=== PATIENT | male | born 1985 | race Caucasian/White ===

== ENCOUNTER 2021-04-04 15:45 | Emergency (ER) | payer OTHER ==
--- NOTE | 2021-04-04 16:37 | RAD REPORT ---
EXAM DESCRIPTION: CT - CTHCSPWOC - 04/04/2021 4:24 pm CLINICAL HISTORY: Trauma, head and neck injury. seizure;Pain COMPARISON: No comparisons TECHNIQUE: Axial 5 mm thick images of the head were obtained. Axial 2 mm thick images of the cervical spine were obtained with sagittal and coronal reconstruction images generated and reviewed. All CT scans are performed using dose optimization technique as appropriate and may include automated exposure control or mA/KV adjustment according to patient size. FINDINGS: CT HEAD WITHOUT CONTRAST: No acute hemorrhage, hydrocephalus or extra-axial collection is identified.No areas of brain edema or midline shift. The paranasal sinuses and mastoids are clear.The calvarium is intact. CT CERVICAL SPINE WITHOUT CONTRAST: No fracture or subluxation.No prevertebral soft tissues swelling is identified. Disc height loss C5-6 with myocardial joint hypertrophy. IMPRESSION: No acute intracranial or cervical spine findings.
[2021-04-04 17:09] LABS: Absolute Lymphocytes (CBC) 1.9 K/uL (0.7-4.9); Basophils % 0.3 % (0-1.3); Hematocrit 48.4 % (39.6-49.0); Lymphocytes % 10.2 % (15.3-44.8); MPV 8.6 fL (7.6-11.3)
[2021-04-04] MEDS ORDERED: LORazepam 2 MG/ML VIAL ONE (17:09)
[2021-04-04 17:11] LABS: Urine Blood 2+ (Negative); Urine Glucose Negative (Negative); Urine Protein 2+ (Negative); Urine Specific Gravity >=1.030 (1.005-1.030)
[2021-04-04] MEDS ORDERED: NA CHLORIDE 0.9% 1,000 ML ONE ×2 (17:14→19:59)
[2021-04-04 17:18] LABS: Protime INR 0.97
[2021-04-04 17:29] LABS: ALT/SGPT 21 U/L (12-78); AST/SGOT 19 U/L (15-37); Albumin 4.8 g/dL (3.4-5.0); Alkaline Phosphatase 59 U/L (45-117); BUN Blood Urea Nitrogen 14 mg/dL (7-18); Bicarbonate 19 mmol/L (21-32); Bilirubin Direct 0.1 mg/dL (0-0.2); Bilirubin Total 0.4 mg/dL (0.2-1.0); Glucose Level 103 mg/dL (74-106); Potassium 3.6 mmol/L (3.5-5.1); Protein, Total 8.9 g/dL (6.4-8.2); Sodium Level 141 mmol/L (136-145)
[2021-04-04 17:29] LABS: Barbiturates NEGATIVE (NEGATIVE); Benzodiazepines NEGATIVE (NEGATIVE); Cocaine NEGATIVE (NEGATIVE); METHAMPHETAM NEGATIVE (NEGATIVE); Methadone NEGATIVE (NEGATIVE); Opiates NEGATIVE (NEGATIVE); Phencyclidine NEGATIVE (NEGATIVE); THC Cannibis POSITIVE (NEGATIVE)
[2021-04-04] MEDS ORDERED: NA CHLORIDE 0.9% 100 ML ONE (18:49)
[2021-04-04] MEDS ORDERED: FOSPHENYTOIN PE 100 MG/2 ML VIAL ONE (18:50)
[2021-04-04] MEDS ORDERED: FOSPHENYTOIN PE 500 MG/10 ML VIAL ONE (18:50)
--- NOTE | 2021-04-04 20:13 | ER ---
Nurse's Notes [facility] Name: Marcel Singh Age: 35 yrs Sex: Male : 1985 Arrival Date: 04/04/2021 Time: 15:59 Bed 16 Private MD: Diagnosis: Other seizures Presentation: 04/04 15:59 Chief complaint: EMS states: WITNESSED TONIC/CLONIC SZ AT FRIEND'S. Coronavirus screen: bp At this time, the client does not indicate any symptoms associated with coronavirus-19. Ebola Screen: No symptoms or risks identified at this time. Initial Sepsis Screen: Does the patient meet any 2 criteria? No. Patient's initial sepsis screen is negative. Does the patient have a suspected source of infection? No. Patient's initial sepsis screen is negative. Risk Assessment: Do you want to hurt yourself or someone else? Patient reports no desire to harm self or others. Onset of symptoms is unknown. Care prior to arrival: IV initiated. 18 GA, in the right antecubital area. 15:59 Method Of Arrival: EMS: [facility] bp 15:59 Acuity: JOSEPH 3 bp Triage Assessment: 16:02 General: Appears in no apparent distress. comfortable, Behavior is calm, cooperative, bp appropriate for age. Pain: Complains of pain in scalp. EENT: No signs and/or symptoms were reported regarding the EENT system. 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 Cardiovascular: No deficits noted. Respiratory: No deficits noted. GI: No signs and/or symptoms were reported involving the gastrointestinal system. : No signs and/or symptoms were reported regarding the genitourinary system. Derm: No deficits noted. Musculoskeletal: No deficits noted. Historical: - Allergies: 16:02 levetiracetam; bp - PMHx: 16:02 Hypertension; PTSD; Seizures; bp - Immunization history:: Adult Immunizations up to date. - Social history:: Smoking status: Patient denies any tobacco usage or history of. Screenin:05 Abuse screen: Denies threats or abuse. Denies injuries from another. Nutritional bp screening: No deficits noted. Tuberculosis screening: No symptoms or risk factors identified. Fall Risk None identified. Assessment: 16:05 General: SEE TRIAGE NOTE. bp 17:30 Reassessment: SZ ACTIVITY NOTED. LMP AT B/S. bp 18:30 Reassessment: No changes from previously documented assessment. Patient and/or family bp updated on plan of care and expected duration. Pain level reassessed. Patient is alert, oriented x 3, equal unlabored respirations, skin warm/dry/pink. FOSPHENYTOIN INFUSING. NRB IN PLACE. 19:30 Reassessment: No changes from previously documented assessment. Patient and/or family fu updated on plan of care and expected duration. Pain level reassessed. Patient is alert, oriented x 3, equal unlabored respirations, skin warm/dry/pink. Vital Signs: 15:59 Weight 83.91 kg; Height 5 ft. 8 in. (172.72 cm); bp 16:07 BP 122 / 87; Pulse 81; Resp 16; Temp 98; Pulse Ox 97% ; bp 17:00 BP 140 / 84; Pulse 92; Resp 16; Pulse Ox 100% ; bp 18:30 BP 105 / 54; Pulse 87; Resp 17; Pulse Ox 98% ; bp 15:59 Body Mass Index 28.13 (83.91 kg, 172.72 cm) bp [place] Coma Score: 16:02 Eye Response: spontaneous(4). Verbal Response: oriented(5). Motor Response: obeys bp commands(6). Total: 15. ED Course: 15:59 Patient arrived in ED. bp 15:59 [facility] cp 15:59 Michelet Wray MD is Attending Physician. cp 16:02 Triage completed. bp 16:02 Arm band placed on. bp 16:05 Patient has correct armband on for positive identification. Bed in low position. Call bp light in reach. Side rails up X2. Adult w/ patient. 16:05 Maintain EMS IV. Dressing intact. Good blood return noted. Site clean \T\ dry. Gauge \T\ bp site: 18 G R AC. 16:24 CT Head C Spine In Process Unspecified. EDMS 16:39 Ruiz Lance, RN is Primary Nurse. bp 17:04 Initial lab(s) drawn, by me, sent to lab. em1 17:29 initiated a transfer with [place] [facility] they are not eb accepting any transfers at this time due to the facility being at capacity. 20:00 No provider procedures requiring assistance completed. fu 20:11 IV discontinued, bleeding controlled, Pressure dressing applied. fu 20:12 Cresecncio Day MD is Referral Physician. cp Administered Medications: 16:45 Drug: Ativan (LORazepam) 2 mg Route: IVP; Site: right antecubital; iw 17:53 Follow up: Response: No adverse reaction bp 17:00 Drug: NS 0.9% 1000 ml Route: IV; Rate: 1 bolus; Site: right antecubital; bp 17:06 CANCELLED (Physician Discretion): Fosphenytoin 1 grams IVPB once; (mix in 50 to 100mL cp NS) 18:30 Drug: CEREbyx (fosphenytoin) 20 mg/kg Route: IVPB; Site: right antecubital; bp 19:42 Drug: NS 0.9% 1000 ml Route: IV; Rate: 1 bolus; Site: right antecubital; fu 20:10 Follow up: Response: No adverse reaction; IV Intake: 1000ml fu Intake: 20:10 IV: 1000ml; Total: 1000ml. fu Outcome: 20:13 Discharge ordered by MD. cp 20:13 Discharged to home via wheelchair, with family. fu 20:13 Condition: good 20:50 Discharge instructions given to patient, family, Instructed on discharge instructions, fu follow up and referral plans. Demonstrated understanding of instructions, follow-up care, Prescriptions given X 2. 20:52 Patient left the ED. iw Signatures: Dispatcher [employer] Farrah Waters RN RN iw Martinez, Eric em1 Michelet Guerrero PA PA cp Fernando Ramon RN RN fu Peltier, Brian, RN RN bp Botello, Elizabeth eb Corrections: (The following items were deleted from the chart) 16:03 16:02 Allergies: NKDA; bp bp
--- NOTE | 2021-04-04 20:13 | EDPHYS ---
Physician Documentation [facility] Name: Marcel Nortonzcolin Age: 35 yrs Sex: Male : 1985 Arrival Date: 04/04/2021 Time: 15:59 Bed 16 Private MD: ED Physician Michelet Wray HPI: 04/04 16:05 This 35 yrs old Male presents to ER via EMS with complaints of Seizure. cp 16:05 The patient presents after having a single isolated seizure, that lasted less than 1 cp minute, the episode(s) was witnessed, by a friend. 16:05 Character of seizure(s): Loss of consciousness: the patient experienced loss of cp consciousness, Motor activity: generalized, Incontinence: none. 16:05 Seizure onset: just prior to arrival. Seizure Hx: Cause: head injury, Last seizure: The cp patient's last seizure was approximately 5 year(s) ago, Seizure medications: none. Associated injury: Head/face: left side of the back of head, contusion. EMS care: none. Current symptoms: mild confusion. 16:45 Significant other reports patient has allergy to Topamax and Keppra. cp Historical: - Allergies: 16:02 levetiracetam; bp - PMHx: 16:02 Hypertension; PTSD; Seizures; bp - Immunization history:: Adult Immunizations up to date. - Social history:: Smoking status: Patient denies any tobacco usage or history of. ROS: 16:10 Constitutional: Negative for body aches, chills, fever, poor PO intake. cp 16:10 Cardiovascular: Negative for chest pain, palpitations. cp 16:10 Eyes: Negative for injury, pain, redness, and discharge. cp 16:10 ENT: Negative for ear pain, sore throat, difficulty swallowing, difficulty handling secretions. 16:10 Respiratory: Negative for cough, shortness of breath, wheezing. 16:10 Abdomen/GI: Negative for abdominal pain, nausea, vomiting, and diarrhea. 16:10 Back: Negative for pain at rest, pain with movement. 16:10 MS/extremity: Negative for injury or acute deformity, decreased range of motion, paresthesias. 16:10 Skin: Negative for rash. 16:10 Neuro: Positive for headache, history of seizure, Negative for altered mental status. 16:10 All other systems are negative. Exam: 16:15 Constitutional: The patient appears in no acute distress, alert, awake, cp non-diaphoretic, non-toxic, well developed, well nourished. 16:15 Head/face: Noted is contusion, that is superficial, of the left side of the back of cp head, swelling, that is mild, of the left side of the back of head, tenderness, that is mild, of the left side of the back of head, Sinus tenderness, is not appreciated. 16:15 Eyes: Periorbital structures: appear normal, Pupils: equal, round, and reactive to light and accomodation, Extraocular movements: intact throughout, Conjunctiva: normal, no exudate, no injection, Sclera: no appreciated abnormality, Lids and lashes: appear normal, bilaterally. 16:15 ENT: External ear(s): are unremarkable, Ear canal(s): are normal, clear, TM's: bulging, is not appreciated, bilaterally, dullness, bilaterally, erythema, is not appreciated, bilaterally, Nose: is normal, Mouth: Lips: moist, Oral mucosa: pink and intact, moist, Posterior pharynx: Airway: no evidence of obstruction, patent. 16:15 Neck: C-spine: vertebral tenderness, is not appreciated, crepitus, is not appreciated, ROM/movement: pain, that is mild, with flexion, limited range of motion, is not appreciated, Meningeal signs: are not present, nuchal rigidity, is not appreciated. 16:15 Chest/axilla: Inspection: normal, Palpation: is normal, no crepitus, no tenderness. 16:15 Cardiovascular: Rate: normal, Rhythm: regular, Edema: is not appreciated, JVD: is not appreciated. 16:15 Respiratory: the patient does not display signs of respiratory distress, Respirations: normal, no use of accessory muscles, no retractions, labored breathing, is not present, Breath sounds: are clear throughout, no decreased breath sounds, no stridor, no wheezing. 16:15 Abdomen/GI: Inspection: abdomen appears normal, Palpation: abdomen is soft and non-tender, in all quadrants, rebound tenderness, is not appreciated, involuntary guarding, is not appreciated. 16:15 Neuro: Orientation: to person, place \T\ time. Mentation: able to follow commands, slow to respond, Cerebellar function: is grossly normal, Motor: moves all fours, strength is normal, Sensation: is normal. Vital Signs: 15:59 Weight 83.91 kg; Height 5 ft. 8 in. (172.72 cm); bp 16:07 BP 122 / 87; Pulse 81; Resp 16; Temp 98; Pulse Ox 97% ; bp 17:00 BP 140 / 84; Pulse 92; Resp 16; Pulse Ox 100% ; bp 18:30 BP 105 / 54; Pulse 87; Resp 17; Pulse Ox 98% ; bp 15:59 Body Mass Index 28.13 (83.91 kg, 172.72 cm) bp [place] Coma Score: 16:02 Eye Response: spontaneous(4). Verbal Response: oriented(5). Motor Response: obeys bp commands(6). Total: 15. MDM: 16:12 Patient medically screened. sherrie 17:00 Differential diagnosis: cerebral vascular accident, drug overdose, cardiac arrhythmia, cp seizure, TIA. 18:30 Data reviewed: vital signs, nurses notes, lab test result(s), radiologic studies, CT cp scan. 18:30 Physician consultation: Crescencio Day MD was called at 18:30, was contacted at 18:30, regarding consult, patient's condition, wants patient to start Dilantin 300 mg qhs and f/u outpatient with neurology. 20:10 Counseling: I had a detailed discussion with the patient and/or guardian regarding: the cp historical points, exam findings, and any diagnostic results supporting the discharge/admit diagnosis, lab results, radiology results, the need for outpatient follow up, for definitive care, a neurologist, to return to the emergency department if symptoms worsen or persist or if there are any questions or concerns that arise at home. 20:10 Response to treatment: the patient's symptoms have markedly improved after treatment, cp VSS. Patient resting comfortably in exam room. Patient with observed seizure activity while being monitored in ED, now stable and no signs of respiratory distress. 04/04 16:01 Order name: Acetaminophen; Complete Time: 17:44 cp 04/04 17:44 Interpretation: ACETA < 2.0; Reviewed. 04/04 16:01 Order name: Basic Metabolic Panel; Complete Time: 17:44 cp 04/04 17:45 Interpretation: Normal except: CO2 19; CRE 1.48; GFR 54. cp 16:01 Order name: CBC with Diff; Complete Time: 17:44 cp 08 17:45 Interpretation: Normal except: WBC 18.50; MCV 96.9; AMADO% 79.2; LYM% 10.2; NEUT A 14.7; cp MNA 1.9. 08 16:01 Order name: ETOH Level; Complete Time: 17:44 cp 08 16:01 Order name: Hepatic Function; Complete Time: 17:44 cp 04/04 17:45 Interpretation: Normal except: TP 8.9; GLOB 4.1. cp 08/ 16:01 Order name: PT-INR; Complete Time: 17:44 cp 04/04 16:01 Order name: Ptt, Activated; Complete Time: 17:44 cp 04/04 16:01 Order name: Salicylate; Complete Time: 17:44 cp 08 16:01 Order name: Urine Drug Screen; Complete Time: 17:44 cp 08 18:13 Interpretation: Normal except: THC POSITIVE. cp 08/ 16:01 Order name: CT Head C Spine; Complete Time: 16:40 cp 08 17:10 Order name: Urine Dipstick-Ancillary; Complete Time: 17:44 EDMS 08 18:13 Interpretation: Normal except: UBLD 2+; UPROT 2+. cp 08/ 16:01 Order name: EKG; Complete Time: 16:02 cp 08 16:01 Order name: IV Saline Lock; Complete Time: 16:08 cp 08 16:01 Order name: Labs collected and sent; Complete Time: 17:04 cp 04/04 16:01 Order name: Suicide Screening ([place]); Complete Time: 16:08 cp 08 16:01 Order name: Urine Dipstick-Ancillary (obtain specimen); Complete Time: 17:21 cp Administered Medications: 16:45 Drug: Ativan (LORazepam) 2 mg Route: IVP; Site: right antecubital; iw 17:53 Follow up: Response: No adverse reaction bp 17:00 Drug: NS 0.9% 1000 ml Route: IV; Rate: 1 bolus; Site: right antecubital; bp 17:06 CANCELLED (Physician Discretion): Fosphenytoin 1 grams IVPB once; (mix in 50 to 100mL cp NS) 18:30 Drug: CEREbyx (fosphenytoin) 20 mg/kg Route: IVPB; Site: right antecubital; bp 19:42 Drug: NS 0.9% 1000 ml Route: IV; Rate: 1 bolus; Site: right antecubital; fu 20:10 Follow up: Response: No adverse reaction; IV Intake: 1000ml fu Disposition: 20:20 Chart complete. cp Disposition Summary: 04/04/21 20:13 Discharge Ordered Location: Home cp Problem: an acute exacerbation cp Symptoms: have improved cp Condition: Stable cp Diagnosis - Other seizures cp Followup: cp - With: Crescencio Day MD - When: 2 - 3 days - Reason: seizure disorder Discharge Instructions: - Epilepsy cp - Seizure, Adult cp - Discharge Summary Sheet fu Forms: - Medication Reconciliation Form cp - SBAR form fu - Thank You Letter cp - Antibiotic Education cp - Prescription Opioid Use cp Prescriptions: - Dilantin Extended 100 mg Oral capsule - take 3 capsule by ORAL route At bedtime; 90 capsule; Refills: 0, Product cp Selection Permitted - Diastat - insert 10 milligram by RECTAL route one time As needed; 10 milligram; Refills: cp 0, Product Selection Permitted Addendum: 04/06/2021 07:38 Co-signature as Attending Physician, Michelet Wray MD I agree with the assessment and c julian plan of care. Signatures: Dispatcher [employer] Michelet Shelton MD MD cha Williams, Irene, RN RN Michelet Sanders PA PA cp Fernando Ramon RN RN fu Peltier, Brian, RN RN bp Corrections: (The following items were deleted from the chart) 04/04 16:03 16:02 Allergies: NKDA; bp bp 16:24 16:05 The patient presents after having a single isolated seizure, that lasted less cp than 1 minute, cp 17:06 16:48 Fosphenytoin 1 grams IVPB once; (mix in 50 to 100mL NS) ordered. cp cp 04/05 17:04 04/04 20:15 Counseling: I had a detailed discussion with the patient and/or guardian cp regarding: the historical points, exam findings, and any diagnostic results supporting the discharge/admit diagnosis, lab results, radiology results, the need for outpatient follow up, for definitive care, a neurologist, to return to the emergency department if symptoms worsen or persist or if there are any questions or concerns that arise at home, cp
[2021-04-04 20:58] VITALS: TEMP 98
[2021-04-04 21:02] VITALS: BP 105/54; O2SAT 98
== END 2021-04-04 20:52 | disposition home or self-care (01) ==
LOC: ER 15:45
DX: G40.89 Other seizures (principal); I10 Essential (primary) hypertension; Z88.8 Allergy status to other drugs, medicaments and biological substances
CPT/HCPCS: 85025; 80048; 36415; 80320; 80329 ×2; 85610; 80076; 85730; 81003; 80307; 70450; 72125; 96375; 96374; 99284; Q2009 ×2; J7030 ×2

== ENCOUNTER 2022-08-08 20:43 | Emergency (ER) | payer OTHER ==
[2022-08-08] MEDS ORDERED: ASPIRIN EC 81 MG TAB PO ONE (21:22)
[2022-08-08 21:44] LABS: Absolute Lymphocytes (CBC) 2.5 K/uL (0.7-4.9); Hematocrit 38.5 % (39.6-49.0); Lymphocytes % 29.7 % (15.3-44.8); MCV 92.7 fL (80-100); MPV 8.1 fL (7.6-11.3); RBC Red Blood Cell Count 4.15 M/uL (4.33-5.43)
[2022-08-08 21:46] LABS: Protime INR 0.99
[2022-08-08 21:59] LABS: ALT/SGPT 17 U/L (16-61); AST/SGOT 20 U/L (15-37); Albumin 3.8 g/dL (3.4-5.0); Alkaline Phosphatase 50 U/L (45-117); BUN Blood Urea Nitrogen 15 mg/dL (7-18); Bicarbonate 28 mmol/L (21-32); Bilirubin Total 0.2 mg/dL (0.2-1.0); Glomerular Filtration Rate 81 ml/min (=/>90); Glucose Level 101 mg/dL (74-106); NT PRO-BNP 46 pg/mL (<125); Potassium 3.8 mmol/L (3.5-5.1); Protein, Total 7.2 g/dL (6.4-8.2); Sodium Level 139 mmol/L (136-145); Troponin High Sensitivity 5.5 pg/mL (<58.9)
[2022-08-08 22:06] LABS: Bilirubin Direct < 0.1 mg/dL (0-0.2)
--- NOTE | 2022-08-08 22:38 | RAD REPORT ---
EXAM DESCRIPTION: RAD - Chest Single View - 08/08/2022 10:28 pm CLINICAL HISTORY: CHEST PAIN COMPARISON: None FINDINGS: Lines: None. Lungs: No evidence of edema or pneumonia. Pleural: No significant pleural effusions or pneumothorax. Cardiac: The heart size is within normal limits. Mediastinum: Within normal limits. Bones: No acute fractures. Other: None IMPRESSION: No acute cardiopulmonary disease.
[2022-08-08] MEDS ORDERED: KETOROLAC 30 MG/ML INJ ONE (23:09)
[2022-08-08 23:46] LABS: Urine Blood Negative (Negative); Urine Glucose Negative (Negative); Urine Protein Negative (Negative); Urine pH 5.5 (5.0-7.0)
[2022-08-09 00:13] LABS: Urine Mucus Slight /HPF (None Seen)
[2022-08-09 00:15] LABS: Barbiturates NEGATIVE (NEGATIVE); Benzodiazepines NEGATIVE (NEGATIVE); Cocaine NEGATIVE (NEGATIVE); METHAMPHETAM NEGATIVE (NEGATIVE); Methadone NEGATIVE (NEGATIVE); Opiates NEGATIVE (NEGATIVE); Phencyclidine NEGATIVE (NEGATIVE); THC Cannibis POSITIVE (NEGATIVE)
--- NOTE | 2022-08-09 00:58 | EDPHYS ---
Physician Documentation [facility] Name: Marcel Singh Age: 36 yrs Sex: Male : 1985 Arrival Date: 08/08/2022 Time: 20:45 Bed 11 Private MD: ED Physician Stu Mayfield HPI: 08/08 21:20 This 36 yrs old Male presents to ER via Ambulatory with complaints of Chest Pain. cp 21:20 The patient or guardian reports chest pain that is located primarily in the anterior cp chest wall, mid chest. 21:20 The pain radiates to the left shoulder. cp 21:20 Associated signs and symptoms: Pertinent negatives: abdominal pain, cough, diaphoresis, cp dizziness, lower extremity pain, lower extremity swelling, shortness of breath, syncope, vomiting. 21:20 The chest pain is described as sharp. Duration: The patient or guardian reports a cp single episode, that is still ongoing, and unchanged. Historical: - Allergies: 21:09 levetiracetam; kb3 - Home Meds: 21:09 None [Active]; kb3 - PMHx: 21:09 Hypertension; PTSD; Seizures; kb3 - PSHx: 21:09 Appendectomy; Shoulder repair; Vasectomy; kb3 - Immunization history:: Adult Immunizations up to date, Client reports receiving the 2nd dose of the Covid vaccine, Last tetanus immunization: up to date. - Social history:: Smoking status: Patient denies any tobacco usage or history of. ROS: 21:25 Constitutional: Negative for body aches, chills, fever, poor PO intake. cp 21:25 Eyes: Negative for injury, pain, redness, and discharge. cp 21:25 ENT: Negative for drainage from ear(s), ear pain, sore throat, difficulty swallowing, difficulty handling secretions. 21:25 Cardiovascular: Positive for chest pain, of the mid-sternal area, Negative for edema, palpitations. 21:25 Respiratory: Negative for cough, shortness of breath, wheezing. 21:25 Abdomen/GI: Negative for abdominal pain, nausea, vomiting, and diarrhea, constipation. 21:25 Back: Positive for radiated pain. 21:25 Neuro: Negative for altered mental status, dizziness, headache, numbness, syncope, weakness. 21:25 All other systems are negative. Exam: 21:08 ECG was reviewed by the Attending Physician. cp 21:30 Constitutional: The patient appears in no acute distress, alert, awake, cp non-diaphoretic, non-toxic, well developed, well nourished, anxious, uncomfortable. 21:30 Head/Face: Normocephalic, atraumatic. cp 21:30 Eyes: Periorbital structures: appear normal, Conjunctiva: normal, no exudate, no injection, Sclera: no appreciated abnormality, Lids and lashes: appear normal, bilaterally. 21:30 ENT: External ear(s): are unremarkable, Nose: is normal, Mouth: Lips: moist, Oral mucosa: pink and intact, moist, Posterior pharynx: Airway: no evidence of obstruction, patent, swelling, is not appreciated, erythema, is not appreciated, exudate, is not appreciated. 21:30 Neck: ROM/movement: is normal, is supple, without pain, no range of motions limitations, no nuchal rigidity. 21:30 Chest/axilla: Inspection: normal, Palpation: is normal, no crepitus, no tenderness. 21:30 Cardiovascular: Rate: normal, Rhythm: regular, Edema: is not appreciated, JVD: is not appreciated. 21:30 Respiratory: the patient does not display signs of respiratory distress, Respirations: normal, no use of accessory muscles, no retractions, labored breathing, is not present, Breath sounds: are clear throughout, no decreased breath sounds, no stridor, no wheezing. 21:30 Abdomen/GI: Inspection: abdomen appears normal, Palpation: abdomen is soft and non-tender, in all quadrants. 21:30 Back: ROM is normal, CVA tenderness, is absent. 21:30 Skin: cellulitis, is not appreciated, no rash present. 21:30 Neuro: Orientation: to person, place \T\ time. Mentation: is normal, Cerebellar function: is grossly normal, Motor: moves all fours, strength is normal, Sensation: is normal. Vital Signs: 21:07 BP 140 / 108; Pulse 76; Resp 22; Temp 98.5; Pulse Ox 96% ; Weight 95.25 kg; Height 5 kb3 ft. 8 in. (172.72 cm); Pain 9/10; 23:00 BP 106 / 78; Pulse 67; Resp 16; Pulse Ox 100% on R/A; Pain 2/10; hb 08/09 01:06 BP 110 / 89; Pulse 60; Resp 16; Pulse Ox 100% on R/A; Pain 0/10; kl 08/08 21:07 Body Mass Index 31.93 (95.25 kg, 172.72 cm) kb3 MDM: 08/08 21:10 Patient medically screened. cp 08/08 21:11 Order name: Basic Metabolic Panel; Complete Time: 23:01 cp 08/08 21:11 Order name: CBC with Diff; Complete Time: 23:01 cp 08/08 21:11 Order name: LFT's; Complete Time: 23:01 cp 08/08 21:11 Order name: Magnesium; Complete Time: 23:01 cp 08/08 21:11 Order name: NT PRO-BNP; Complete Time: 23:01 cp 08/08 21:11 Order name: PT-INR; Complete Time: 23:01 cp 08/08 21:11 Order name: Troponin HS; Complete Time: 23:01 cp 08/08 21:11 Order name: XRAY Chest (1 view); Complete Time: 23:01 cp 08/08 23:02 Order name: UDS; Complete Time: 00:54 cp 08/08 23:02 Order name: Urine Microscopic Only; Complete Time: 00:54 cp 08/08 23:46 Order name: Urine Dipstick-Ancillary; Complete Time: 00:54 EDMS 08/08 23:48 Order name: Troponin High Sensitivity: repeat \T\0015; Complete Time: 00:54 cp 08/08 21:11 Order name: EKG; Complete Time: 21:12 cp 08/08 21:11 Order name: Cardiac monitoring; Complete Time: 21:51 cp 08/08 21:11 Order name: EKG - Nurse/Tech; Complete Time: 21:29 cp 08/08 21:11 Order name: IV Saline Lock; Complete Time: 21:29 cp 08/08 21:11 Order name: Labs collected and sent; Complete Time: 21:29 cp 08/08 21:11 Order name: O2 Per Protocol; Complete Time: 21:29 cp 08/08 21:11 Order name: O2 Sat Monitoring; Complete Time: 21:29 cp 08/08 23:02 Order name: Urine Dipstick-Ancillary (obtain specimen); Complete Time: 23:46 cp EC:08 Rate is 78 beats/min. Rhythm is regular. IL interval is normal. QRS interval is normal. cp QT interval is normal. T waves are Inverted in lead aVR. Interpreted by me. Reviewed by me. Administered Medications: 21:29 Drug: Aspirin Chewable Tablet 324 mg Route: PO; 08/09 01:06 Follow up: Response: No adverse reaction 08/08 23:09 Drug: Ketorolac 15 mg Route: IVP; Site: right antecubital; hb 23:46 Follow up: Response: No adverse reaction 08/09 01:06 Follow up: Response: No adverse reaction; Marked relief of symptoms Disposition: : Co-signature as Attending Physician, Stu Mayfield MD. rn Disposition Summary: 08/09/22 00:57 Discharge Ordered Location: Home cp Problem: new cp Symptoms: have improved cp Condition: Stable cp Diagnosis - Chest pain, unspecified cp Followup: cp - With: Reuben Frye MD - When: 2 - 3 days - Reason: Recheck today's complaints Discharge Instructions: - Discharge Summary Sheet cp - Nonspecific Chest Pain, Adult cp - Aspirin and Your Heart cp - Managing Anxiety, Adult cp Forms: - Medication Reconciliation Form cp - Thank You Letter cp - Antibiotic Education cp - Prescription Opioid Use cp Signatures: Dispatcher [employer] Lydia Donaldson RN RN kl Nieto, Roman, MD MD rn Page, Corey, PA PA cp Moni Egan RN RN hb Bradberry, Kelly RN RN kb3 Corrections: (The following items were deleted from the chart) 08/10 00:37 08/08 21:20 The chest pain is described as a pressure, cp cp
--- NOTE | 2022-08-09 00:58 | ER ---
Nurse's Notes [facility] Name: Marcel Singh Age: 36 yrs Sex: Male : 1985 Arrival Date: 08/08/2022 Time: 20:45 Bed 11 Private MD: Diagnosis: Chest pain, unspecified Presentation: 08/08 21:07 Chief complaint: Patient states: mid-sternal sharp chest pain that began yesterday kb3 night and has not improved. PT reports grandfather had NV in his 30's so he is very anxious. Denies N/V/sweating. Coronavirus screen: Vaccine status: Patient reports receiving the 2nd dose of the covid vaccine. Client denies travel out of the [place] in the last 14 days. Ebola Screen: Patient negative for fever greater than or equal to 101.5 degrees Fahrenheit, and additional compatible Ebola Virus Disease symptoms Patient denies exposure to infectious person. Patient denies travel to an Ebola-affected area in the 21 days before illness onset. No symptoms or risks identified at this time. Initial Sepsis Screen: Does the patient meet any 2 criteria? No. Patient's initial sepsis screen is negative. Does the patient have a suspected source of infection? No. Patient's initial sepsis screen is negative. Risk Assessment: Do you want to hurt yourself or someone else? Patient reports no desire to harm self or others. Onset of symptoms was August 07, 2022 at 20:00. 21:07 Method Of Arrival: Ambulatory kb3 21:07 Acuity: JOSEPH 3 kb3 Triage Assessment: 21:09 General: Appears in no apparent distress. Behavior is anxious. Pain: Complains of pain kb3 in mid-sternal area Pain does not radiate. Pain currently is 9 out of 10 on a pain scale. Quality of pain is described as sharp, Pain began 1 day ago. Cardiovascular: Reports chest pain, Heart tones present Capillary refill < 3 seconds Patient's skin is warm and dry. Rhythm is sinus rhythm. Respiratory: No deficits noted. GI: No deficits noted. Historical: - Allergies: 21:09 levetiracetam; kb3 - Home Meds: 21:09 None [Active]; kb3 - PMHx: 21:09 Hypertension; PTSD; Seizures; kb3 - PSHx: 21:09 Appendectomy; Shoulder repair; Vasectomy; kb3 - Immunization history:: Adult Immunizations up to date, Client reports receiving the 2nd dose of the Covid vaccine, Last tetanus immunization: up to date. - Social history:: Smoking status: Patient denies any tobacco usage or history of. Screenin:33 [facility] ED Fall Risk Assessment (Adult). Abuse screen: Denies threats or abuse. Nutritional screening: No deficits noted. Tuberculosis screening: No symptoms or risk factors identified. Fall Risk No fall in past 12 months (0 pts). No secondary diagnosis (0 pts). IV access (20 points). Ambulatory Aid- None/Bed Rest/Nurse Assist (0 pts). Gait- Normal/Bed Rest/Wheelchair (0 pts) Mental Status- Oriented to own ability (0 pts). Total Styles Fall Scale indicates No Risk (0-24 pts). Assessment: 21:32 General: Appears in no apparent distress. comfortable, Behavior is calm, cooperative. kl Pain: Complains of pain in chest and mid-sternal area. Cardiovascular: Reports chest pain, Rhythm is sinus rhythm. 22:59 Reassessment: Patient appears in no apparent distress at this time. Patient and/or hb family updated on plan of care and expected duration. Pain level reassessed. Patient is alert, oriented x 3, equal unlabored respirations, skin warm/dry/pink. 23:46 Reassessment: Patient appears in no apparent distress at this time. Patient is alert, hb oriented x 3, equal unlabored respirations, skin warm/dry/pink. Patient denies pain at this time. Patient states feeling better. Patient states symptoms have improved. 08/09 00:35 Reassessment: Patient appears in no apparent distress at this time. Patient and/or kl family updated on plan of care and expected duration. Pain level reassessed. Patient is alert, oriented x 3, equal unlabored respirations, skin warm/dry/pink. Patient denies pain at this time. Patient states feeling better. Patient states symptoms have improved. Vital Signs: 08/08 21:07 BP 140 / 108; Pulse 76; Resp 22; Temp 98.5; Pulse Ox 96% ; Weight 95.25 kg; Height 5 kb3 ft. 8 in. (172.72 cm); Pain 9/10; 23:00 BP 106 / 78; Pulse 67; Resp 16; Pulse Ox 100% on R/A; Pain 2/10; hb 08/09 01:06 BP 110 / 89; Pulse 60; Resp 16; Pulse Ox 100% on R/A; Pain 0/10; kl 08/08 21:07 Body Mass Index 31.93 (95.25 kg, 172.72 cm) kb3 ED Course: 08/08 20:45 Patient arrived in ED. as 20:57 Michelet Guerrero PA is PHCP. cp 20:57 Stu Mayfield MD is Attending Physician. cp 21:09 Triage completed. kb3 21:09 Arm band placed on right wrist. kb3 21:29 Basic Metabolic Panel Sent. kl 21:29 CBC with Diff Sent. kl 21:29 LFT's Sent. kl 21:29 Magnesium Sent. kl 21:29 NT PRO-BNP Sent. kl 21:29 PT-INR Sent. kl 21:29 Troponin HS Sent. kl 21:32 Inserted saline lock: 20 gauge in right antecubital area, using aseptic technique. kl Blood collected. 21:51 Moni Egan, RN is Primary Nurse. hb 22:00 Patient has correct armband on for positive identification. Client placed on continuous hb cardiac and pulse oximetry monitoring. NIBP monitoring applied. 22:30 XRAY Chest (1 view) In Process Unspecified. EDMS 23:46 UDS Sent. hb 23:46 Urine Microscopic Only Sent. hb 08/09 00:35 Troponin High Sensitivity: repeat \T\0015 Sent. kl 00:57 Reuben Frye MD is Referral Physician. cp 01:07 No provider procedures requiring assistance completed. IV discontinued, intact, kl bleeding controlled, No redness/swelling at site. Pressure dressing applied. Patient maintains SpO2 saturation greater than 95% on room air. Administered Medications: 08/08 21:29 Drug: Aspirin Chewable Tablet 324 mg Route: PO; kl 08/09 01:06 Follow up: Response: No adverse reaction 08/08 23:09 Drug: Ketorolac 15 mg Route: IVP; Site: right antecubital; hb 23:46 Follow up: Response: No adverse reaction hb 08/09 01:06 Follow up: Response: No adverse reaction; Marked relief of symptoms kl Medication: 08/08 21:33 VIS not applicable for this client. kl Outcome: 08/09 00:57 Discharge ordered by . cp 01:07 Discharged to home ambulatory, with family. isabela 01:07 Condition: stable 01:07 Discharge instructions given to patient, family, Instructed on discharge instructions, follow up and referral plans. Demonstrated understanding of instructions, follow-up care. 01:07 Patient left the ED. isabela Signatures: Dispatcher [employer] EDMS Lydia Powell RN RN kl Martinez, Amelia as Page, Corey, PA PA cp Baxter, Heather, RN RN Jennifer Whelan RN RN kb3
[2022-08-09 01:21] VITALS: TEMP 98.5
[2022-08-09 01:27] VITALS: O2SAT 100
[2022-08-09 01:33] VITALS: BP 110/89
--- NOTE | 2022-08-09 14:56 | EKG ---
Test Date: 2022-08-08 Test Time: 21:03:25 Manager Clinical: EYAL MEASUREMENT RESULTS: Intervals: Rate: 78 NC: 170 QRSD: 82 QT: 352 QTc: 401 [place]: P: 28 NC: 170 QRS: 38 T: 17 INTERPRETIVE STATEMENTS: Normal sinus rhythm Normal ECG Compared to ECG 06/08/2016 17:08:14 No significant changes Electronically Signed On 08-09-22 14:55:09 SALES SYSTEMS ENGINEER by Reuben Frye
== END 2022-08-09 01:07 | disposition home or self-care (01) ==
LOC: ER 20:43
DX: R07.89 Other chest pain (principal); I10 Essential (primary) hypertension; Z88.8 Allergy status to other drugs, medicaments and biological substances
CPT/HCPCS: 36415; 71045; 80048; 80076; 80307; 81003; 81015; 83735; 83880; 84484; 85025; 85610; 93005; 96374; 99285

== ENCOUNTER 2023-02-05 21:58 | Emergency (ER) | payer OTHER ==
[2023-02-05] MEDS ORDERED: LORazepam 2 MG/ML VIAL ONE (22:19)
[2023-02-05 22:22] LABS: Absolute Lymphocytes (CBC) 2.3 K/uL (0.7-4.9); Hematocrit 38.3 % (39.6-49.0); Lymphocytes % 27.6 % (15.3-44.8); MCV 94.1 fL (80-100); MPV 8.5 fL (7.6-11.3); RBC Red Blood Cell Count 4.07 M/uL (4.33-5.43)
[2023-02-05 22:40] LABS: Albumin 3.8 g/dL (3.4-5.0); Bilirubin Total 0.3 mg/dL (0.2-1.0); Potassium 3.8 mEq/L (3.5-5.1); Protein, Total 6.9 g/dL (6.4-8.2)
[2023-02-05] MEDS ORDERED: PHENYTOIN ER 100 MG CAP PO ONE (23:14)
--- NOTE | 2023-02-05 23:56 | ER ---
Nurse's Notes [facility] Name: Marcel Singh Age: 37 yrs Sex: Male : 1985 Arrival Date: 02/05/2023 Time: 21:58 Bed 7 Private MD: Diagnosis: Other seizures Presentation: 02/05 22:01 Chief complaint: EMS states: per EMS LJ, family saw pt rolled over from the bed and rv having seizure, bit tip of the tongue. pt is back to normal upon arrival. complaining of headache. with history of seizure and denies taking any meds. Coronavirus screen: Vaccine status: Patient reports receiving the 2nd dose of the covid vaccine. Date 2020. Ebola Screen: Patient negative for fever greater than or equal to 101.5 degrees Fahrenheit, and additional compatible Ebola Virus Disease symptoms Patient denies exposure to infectious person. Patient denies travel to an Ebola-affected area in the 21 days before illness onset. Initial Sepsis Screen: Does the patient meet any 2 criteria? No. Patient's initial sepsis screen is negative. Does the patient have a suspected source of infection? No. Patient's initial sepsis screen is negative. Risk Assessment: Do you want to hurt yourself or someone else? Patient reports no desire to harm self or others. Onset of symptoms was February 05, 2023 at 21:00. 22:01 Method Of Arrival: EMS: [facility] rv 22:01 Acuity: JOSEPH 2 rv Triage Assessment: 22:04 General: Appears comfortable, Behavior is calm, cooperative. Pain: Complains of pain in rv headache. Neuro: Level of Consciousness is awake, alert, obeys commands, Oriented to person, place, time, situation. Cardiovascular: Capillary refill < 3 seconds Rhythm is regular. Respiratory: Airway is patent Respiratory effort is even, unlabored, Breath sounds are clear bilaterally. GI: No signs and/or symptoms were reported involving the gastrointestinal system. : No signs and/or symptoms were reported regarding the genitourinary system. Historical: - Allergies: 22:04 levetiracetam; rv - PMHx: 22:04 Hypertension; PTSD; Seizures; rv - PSHx: 22:04 Appendectomy; Shoulder repair; Vasectomy; rv - Immunization history:: Adult Immunizations up to date. - Social history:: Smoking status: Patient denies any tobacco usage or history of. Screenin:07 [facility] ED Fall Risk Assessment (Adult) History of falling in the last 3 months, rv including since admission Yes- single mechanical fall (1 pt) Confusion or Disorientation Yes (5 pts) Intoxicated or Sedated No (0 pts) Impaired Gait No (0 pts) Mobility Assist Device Used No (0 pt) Altered Elimination No (0 pt) Score/Fall Risk Level 3 or more points = High Risk Oriented to surroundings, Maintained a safe environment, Educated pt \T\ family on fall prevention, incl call for assistance when getting out of bed, Assessed \T\ reinforced patient's understanding of fall precautions, Provided non-skid footwear, Hourly rounding (assess needs \T\ fall precautionary measures) done, Used ambulatory aids as needed (educated on \T\ assisted with), Used gait belt as appropriate Implemented a Fall Risk Plan of Care, Apply high fall risk patient identification: yellow non skid footwear/ fall signage, Placed fall mat w/ non beveled edge next to bed, Activated bed/chair alarm, Remained w/in arm's length of patient and in sight while toileting, Offered frequent toileting (1:1 observation), Remained with patient while ambulating, Utilized family, sitter, or virtual manufacturing technology professor as indicated. Abuse screen: Denies threats or abuse. Denies injuries from another. Nutritional screening: No deficits noted. Tuberculosis screening: No symptoms or risk factors identified. Assessment: 22:10 General: Appears in no apparent distress. uncomfortable, Behavior is calm, cooperative, jb4 appropriate for age. Pain: Denies pain. Neuro: Level of Consciousness is awake, alert, obeys commands, Oriented to person, place, time, situation. Cardiovascular: Patient's skin is warm and dry. Respiratory: Airway is patent Respiratory effort is even, unlabored, Respiratory pattern is regular, symmetrical. GI: No signs and/or symptoms were reported involving the gastrointestinal system. : No signs and/or symptoms were reported regarding the genitourinary system. EENT: No signs and/or symptoms were reported regarding the EENT system. Derm: Skin is intact, Skin is pink, warm \T\ dry. Musculoskeletal: Circulation, motion, and sensation intact. Range of motion: intact in all extremities. 22:12 Reassessment: Pt actively seizing, provider to the bedside. See MAR for orders. jb4 23:13 Reassessment: Pt is no A\T\Ox4 family is at the bedside. tolerates PO fluids and jb4 medications. 02/06 00:20 Reassessment: Patient appears in no apparent distress at this time. Patient and/or jb4 family updated on plan of care and expected duration. Pain level reassessed. Patient is alert, oriented x 3, equal unlabored respirations, skin warm/dry/pink. Vital Signs: 02/05 22:01 BP 110 / 74; Pulse 75; Resp 17; Temp 98.7; Pulse Ox 96% on R/A; Weight 88.45 kg (R); rv Height 5 ft. 8 in. (R); 23:16 BP 113 / 69; Pulse 75; Resp 16; Pulse Ox 99% on R/A; jb4 02/06 00:20 BP 96 / 55; Pulse 64; Resp 16; Pulse Ox 98% on R/A; jb4 02/05 22:01 Body Mass Index 29.65 (88.45 kg, 172.72 cm) rv ED Course: 02/05 21:59 Patient arrived in ED. rv 22:01 Shlomo Cruz MD is Attending Physician. bs3 22:01 Jessica Huggins FNP-C is [facility]. kb 22:04 Triage completed. rv 22:06 Arm band placed on right wrist. rv 22:07 Maintain EMS IV. Dressing intact. Good blood return noted. Site clean \T\ dry. Gauge \T\ rv site: G20 LAC. 22:08 Patient has correct armband on for positive identification. Placed in gown. Bed in low rv position. Call light in reach. Side rails up X2. Client placed on continuous cardiac and pulse oximetry monitoring. NIBP monitoring applied. electronic device monitor on. 22:08 No provider procedures requiring assistance completed. rv 22:15 Porfirio Godoy, VICKI is Primary Nurse. rv 23:55 Crescencio Day MD is Referral Physician. bs3 02/06 00:20 IV discontinued, intact, bleeding controlled, No redness/swelling at site. Pressure jb4 dressing applied. Administered Medications: 02/05 22:16 Drug: NS 0.9% IV 1000 ml Route: IV; Rate: 1000 ml; Site: left antecubital; rv 22:16 Drug: Ativan IVP 4 mg Route: IVP; Site: left antecubital; rv 22:16 Not Given (Duplicate Order): Ativan IVP 4 mg IVP once rv 23:12 Drug: Phenytoin Sodium Extended PO 300 mg Route: PO; jb4 Medication: 22:08 VIS not applicable for this client. rv Outcome: 23:56 Discharge ordered by . bs3 02/06 00:20 Discharged to home via wheelchair, with family. jb4 Condition: stable Discharge instructions given to patient, Instructed on discharge instructions, follow up and referral plans. medication usage, Demonstrated understanding of instructions, follow-up care, medications, Prescriptions given X 1. 00:21 Patient left the ED. jb4 Signatures: Jessica Huggins FNP-C FNP-Dar Peguero, RN RN jb4 Porfirio Godoy RN RN Shlomo Mendoza MD MD bs3
--- NOTE | 2023-02-05 23:57 | EDPHYS ---
Physician Documentation [facility] Name: Marcel Nortonzypmalina Age: 37 yrs Sex: Male : 1985 Arrival Date: 02/05/2023 Time: 21:58 Bed 7 Private MD: ED Physician Shlomo Cruz HPI: 02/05 22:07 This 37 yrs old Male presents to ER via EMS with complaints of seizure. bs3 22:07 37yo m hx of ptsd, htn, seizure d/o presents with a seizure. He rolled and then had bs3 witnessed tonic clonic movement, when ems arrived it resolved. Patient notes that he has had decreased sleep recently otherwise no complaints. Historical: - Allergies: 22:04 levetiracetam; rv - PMHx: 22:04 Hypertension; PTSD; Seizures; rv - PSHx: 22:04 Appendectomy; Shoulder repair; Vasectomy; rv - Immunization history:: Adult Immunizations up to date. - Social history:: Smoking status: Patient denies any tobacco usage or history of. ROS: 22:07 Constitutional: Negative for fever, chills bs3 22:07 All other systems are negative. Exam: 22:07 Constitutional: This is a well developed, well nourished patient who is awake, alert, bs3 and in no acute distress. Head/Face: Normocephalic, atraumatic. Eyes: Pupils equal round and reactive to light, extra-ocular motions intact. Lids and lashes normal. ENT: mmm, no posterior phyarngeal erythema Neck: Trachea midline, no thyromegaly, no neck stiffness Chest/axilla: Normal chest wall appearance and motion. Nontender with no deformity. No lesions are appreciated. Cardiovascular: Regular rate and rhythm with a normal S1 and S2. symmetric pulses in upper extremities Respiratory: Lungs have equal breath sounds bilaterally, clear to auscultation, no respiratory distress Abdomen/GI: Soft, non-tender, no rebound or guarding MS/ Extremity: Pulses equal, no cyanosis. Neurovascular intact. Full, normal range of motion. Neuro: Awake and alert, GCS 15, oriented to person, place, time, and situation. Cranial nerves II-XII grossly intact. Motor strength 5/5 in all extremities. Sensory grossly intact. Psych: Awake, alert, with orientation to person, place and time. Behavior, mood, and affect are within normal limits. Vital Signs: 22:01 BP 110 / 74; Pulse 75; Resp 17; Temp 98.7; Pulse Ox 96% on R/A; Weight 88.45 kg (R); rv Height 5 ft. 8 in. (R); 23:16 BP 113 / 69; Pulse 75; Resp 16; Pulse Ox 99% on R/A; jb4 02/06 00:20 BP 96 / 55; Pulse 64; Resp 16; Pulse Ox 98% on R/A; jb4 02/05 22:01 Body Mass Index 29.65 (88.45 kg, 172.72 cm) rv MDM: 02/05 22:01 Patient medically screened. bs3 22:07 Data reviewed: vital signs, nurses notes. ED course: Patient with likely seizure given bs3 his fogginess now his tongue laceration and his noncompliance with his medications we will check labs and observe I was called to the bed at approximately 610 for patient having seizure-like activity patient actively having a seizure he was placed on nonrebreather given Ativan 4 mg will load with Keppra we will reassess. 23:55 ED course: Discussed risks and benefits of Dilantin versus his medical marijuana bs3 patient agreeable to trial of Dilantin he is advised to follow-up with Dr. Day and the [place], return precautions given. 02/05 22:06 Order name: CBC with Diff; Complete Time: 23:00 bs3 02/05 22:06 Order name: Comprehensive Metabolic Panel; Complete Time: 23:00 bs3 02/05 22:06 Order name: EKG - Nurse/Tech; Complete Time: 22:42 bs3 Administered Medications: 22:16 Drug: NS 0.9% IV 1000 ml Route: IV; Rate: 1000 ml; Site: left antecubital; rv 22:16 Drug: Ativan IVP 4 mg Route: IVP; Site: left antecubital; rv 22:16 Not Given (Duplicate Order): Ativan IVP 4 mg IVP once rv 23:12 Drug: Phenytoin Sodium Extended PO 300 mg Route: PO; jb4 Disposition Summary: 02/05/23 23:56 Discharge Ordered Location: Home bs3 Problem: new bs3 Symptoms: have improved bs3 Condition: Stable bs3 Diagnosis - Other seizures bs3 Followup: bs3 - With: Crescencio Day MD - When: 1 week - Reason: Re-evaluation by your physician Discharge Instructions: - Discharge Summary Sheet bs3 - Seizure, Adult bs3 Forms: - Medication Reconciliation Form bs3 - Thank You Letter bs3 - Antibiotic Education bs3 - Prescription Opioid Use bs3 Prescriptions: - Dilantin Extended 100 mg Oral capsule - take 3 capsule by ORAL route every day at bedtime for 30 days; 90 capsule; bs3 Refills: 0, Product Selection Permitted Signatures: Dispatcher [employer] Dar Brooke RN RN jb4 Porfirio Godoy RN RN rv Shlomo Cruz MD MD bs3
[2023-02-06 00:51] VITALS: TEMP 98.7
[2023-02-06 00:54] VITALS: BP 96/55; O2SAT 98
--- NOTE | 2023-02-07 12:06 | EKG ---
Test Date: 2023-02-05 Test Time: 22:18:10 Carpet Floor Layer Apprentice: DANK MEASUREMENT RESULTS: Intervals: Rate: 84 [place]: 196 QRSD: 104 QT: 370 QTc: 437 [place]: P: 56 [place]: 196 QRS: 81 T: 42 INTERPRETIVE STATEMENTS: Normal sinus rhythm Normal ECG Compared to ECG 08/08/2022 21:03:25 No significant changes Electronically Signed On 02-07-23 12:00:55 CDT by Jesus Adam
== END 2023-02-06 00:21 | disposition home or self-care (01) ==
LOC: ER 21:58
DX: G40.89 Other seizures (principal); I10 Essential (primary) hypertension; Z88.8 Allergy status to other drugs, medicaments and biological substances
CPT/HCPCS: 36415; 80053; 85025; 93005; 96374; 99285